=== PATIENT | female | born 1980 | race African-American/Black ===

== ENCOUNTER 2017-03-05 19:43 | Emergency (ER) | payer OTHER ==
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
[~2017-03-05 19:43] MED LIST: ACCUPRIL PO; ACTOS PO; ASPIRIN81 M1 PO; EC-NAPROSYN500 MG PO; FLEXERIL PO; FLEXERIL10 MG PO; GLUCOPHAGE XR500 MG PO; HUMALOG100 U/ML SUBQ; HUMULIN SUBQ; IBUPROFEN PO; INSULIN; KEFLEX PO; LEVEMIR INSULIN; LISINOPRIL PO; METFORMIN PO; MOTRIN600 MG PO; NORMODYNE PO; PHENERGAN PO; PHENERGAN25 MG PO; PRILOSEC PO; PRILOSEC20 M1 PO; PROTONIX PO; UNKNOWN DIABETIC MED; VICODIN 5/500 T1 TAB PO; VICODIN PO; VOLTAREN75 MG PO; ZYRTEC PO
== END 2017-03-05 22:51 | disposition home or self-care (01) ==
LOC: CED 19:43
DX: S09.90XA Unspecified injury of head, initial encounter (principal); S33.5XXA Sprain of ligaments of lumbar spine, initial encounter; S13.4XXA Sprain of ligaments of cervical spine, initial encounter; E11.40 Type 2 diabetes mellitus with diabetic neuropathy, unspecified; I10 Essential (primary) hypertension; Z79.899 Other long term (current) drug therapy; V49.50XA Passenger injured in collision with unspecified motor vehicles in traffic accident, initial encounter; Y92.410 Unspecified street and highway as the place of occurrence of the external cause
CPT/HCPCS: 70450; 72072; 72100; 72125; 96372; 99284; J1885